=== PATIENT | male | born 1990 | race African-American/Black ===

== ENCOUNTER 2017-11-05 13:57 | Emergency (ER) | payer SELFPAY ==
[~2017-11-05] VITALS: Ht 180.3 cm; Wt 75.0 kg
[2017-11-05] MEDS ORDERED: ACETAMINOPHEN 325MG TABLET ONE (14:44)
[2017-11-05] MEDS ORDERED: ACETAMINOPHEN 325MG TABLET PO ONE (14:45)
[2017-11-05 16:26] VITALS: BP 126/75
[2017-11-05] MEDS ORDERED: KETOROLAC 60MG/2ML VIAL IM ONE (16:30)
== END 2017-11-05 21:44 | disposition home or self-care (01) ==
LOC: ER 21:22
DX: G43.909 Migraine, unspecified, not intractable, without status migrainosus (principal)
CPT/HCPCS: 96372; 99283; J1885